=== PATIENT | female | born 1990 | race Caucasian/White ===

== ENCOUNTER 2022-05-10 15:22 | Inpatient (IN) | payer OTHER, MEDICAID ==
[~2022-05-10] VITALS: Ht 157.5 cm; Wt 62.3 kg
[2022-05-10] MEDS ORDERED: CITA10TA99 PO (15:39)
[2022-05-10] MEDS ORDERED: CITA-144 PO (15:40)
[2022-05-10 16:56] LABS: BASOPHILS % (AUTO) 0.7 % (0.0-2.0); EOSINOPHILS % (AUTO) 0.3 % (1.0-6.0); HEMATOCRIT 43.3 % (36-46); HEMOGLOBIN 14.7 g/dL (12.0-16.0); LYMPHOCYTES # (AUTO) 1.6 K/uL (1.0-4.8); LYMPHOCYTES % (AUTO) 18.5 % (22.0-44.0); MEAN CORPUSCULAR HEMOGLOBIN 31.1 pg (26.0-34.0); MEAN CORPUSCULAR VOLUME 91 fL (80-100); MONOCYTES # (AUTO) 0.5 K/uL (0.1-1.0); MONOCYTES % (AUTO) 6.3 % (2.0-9.0); NEUTROPHILS # (AUTO) 6.4 K/uL (1.8-7.7); NEUTROPHILS % (AUTO) 74.2 % (40.0-70.0); PLATELET COUNT (AUTO) 335 K/uL (150-450); RED BLOOD CELL COUNT(AUTO) 4.74 MIL/uL (4.00-5.20); RED CELL DISTRIBUTION WIDTH 13.4 % (11.5-14.5)
[2022-05-10] MEDS ORDERED: LORazepam 1 MG TABLET PO PRN (17:00)
[2022-05-10] MEDS ORDERED: ZOLPIDEM TARTRATE 10 MG TABLET PO PRN ×2 (17:00→20:30)
[2022-05-10] MEDS ORDERED: HALOPERIDOL 5 MG TABLET PO PRN ×2 (17:00→20:30)
[2022-05-10 17:13] LABS: ANION GAP 13 mmol/L (8-16); CALCIUM, TOTAL 9.4 mg/dL (8.8-10.5); CARBON DIOXIDE 24 mmol/L (22-29); CHLORIDE 101 mmol/L (98-107); CREATININE 0.76 mg/dL (0.60-1.30); GLUCOSE,RANDOM 68 mg/dL (70-110); POTASSIUM 3.9 mmol/L (3.5-5.1); SODIUM SERUM 138 mmol/L (136-145); UREA NITROGEN, BLOOD 12 mg/dL (7-18)
[2022-05-10 17:14] LABS: GLOMERULAR FILTR. RATE CALC > 60 mL/min (>60)
[2022-05-10 17:19] LABS: ALANINE AMINOTRANSFERASE 18 U/L (12-78); ALBUMIN 4.4 g/dL (3.4-5.0); ALKALINE PHOSPHATASE 85 U/L (46-116); ASPARTATE AMINOTRANSFERASE 15 U/L (15-37); BILIRUBIN,TOTAL 0.9 mg/dL (0.1-1.0); TOTAL PROTEIN, SERUM 8.5 g/dL (6.4-8.2)
[2022-05-10 18:40] LABS: AMPHET/METH SCREEN,URINE NEGATIVE (NEGATIVE); BARBITURATE SCREEN, URINE NEGATIVE (NEGATIVE); BENZODIAZEPINES SCREEN,URINE NEGATIVE (NEGATIVE); CANNABINOID SCREEN,URINE NEGATIVE (NEGATIVE); COCAINE SCREEN,URINE NEGATIVE (NEGATIVE); METHADONE SCREEN, URINE NEGATIVE (NEGATIVE); OPIATE SCREEN,URINE NEGATIVE (NEGATIVE)
[2022-05-10 18:43] LABS: PHENCYCLIDINE SCREEN,URINE NEGATIVE (NEGATIVE)
[2022-05-10 20:25] LABS: COVID AG,FIA SOURCE NASAL SWAB
[2022-05-10] MEDS ORDERED: LORazepam 2 MG TABLET PO PRN (20:30)
[2022-05-10 23:06] LABS: APPEARANCE,URINE TURBID (CLEAR); GLUCOSE, URINE (UA) NEGATIVE (NEGATIVE); KETONES,URINE 80-100 mg/dL (NEGATIVE); LEUKOCYTE ESTERASE ,URINE LARGE (NEGATIVE); NITRATE,URINE NEGATIVE (NEGATIVE); OCCULT BLOOD,URINE SMALL (NEGATIVE); PROTEIN,URINE 30-70 mg/dL (NEGATIVE); SPECIFIC GRAVITIY, URINE 1.029 (1.003-1.030)
[2022-05-10 23:09] LABS: BILIRUBIN,URINE SMALL (NEGATIVE)
[2022-05-10 23:29] LABS: BACTERIA,URINE Moderate /HPF (None Seen)
[2022-05-11 03:52] VITALS: BP 124/80
[2022-05-11 06:41] LABS: BAND NEUTROPHILS % (MANUAL) 0 % (0-5)
[2022-05-11 07:03] LABS: HEMATOCRIT 41.7 % (36-46); HEMOGLOBIN 14.3 g/dL (12.0-16.0); MEAN CORPUSCULAR HEMOGLOBIN 31.2 pg (26.0-34.0); MEAN CORPUSCULAR HGB CONC 34.3 G/dL (31.0-37.0); MEAN CORPUSCULAR VOLUME 91 fL (80-100); PLATELET COUNT (AUTO) 319 K/uL (150-450); RED BLOOD CELL COUNT(AUTO) 4.59 MIL/uL (4.00-5.20); RED CELL DISTRIBUTION WIDTH 13.5 % (11.5-14.5)
[2022-05-11 07:09] LABS: HEMOGLOBIN A1C 4.8 % (3.8-5.6)
[2022-05-11 07:27] LABS: ALANINE AMINOTRANSFERASE 17 U/L (12-78); ALKALINE PHOSPHATASE 80 U/L (46-116); ANION GAP 10 mmol/L (8-16); ASPARTATE AMINOTRANSFERASE 14 U/L (15-37); BILIRUBIN,TOTAL 0.8 mg/dL (0.1-1.0); CALCIUM, TOTAL 9.3 mg/dL (8.8-10.5); CARBON DIOXIDE 27 mmol/L (22-29); CHLORIDE 104 mmol/L (98-107); CHOL/HDL RATIO 3.7 (3.9-5.7); CHOLESTEROL 222 mg/dL (131-200); CREATININE 0.76 mg/dL (0.60-1.30); FREE T4 (FREE THYROXINE) 1.21 ng/dL (0.76-1.46); GLUCOSE,RANDOM 83 mg/dL (70-110); HDL CHOLESTEROL 60 mg/dL (40-60); LDL CHOL (CALC.) 138 mg/dL (0-130); POTASSIUM 4.1 mmol/L (3.5-5.1); SODIUM SERUM 141 mmol/L (136-145); THYROID STIMULATING HORMONE 1.92 uIU/mL (0.36-3.74); TOTAL PROTEIN, SERUM 7.9 g/dL (6.4-8.2); TRIGLYCERIDES 118 mg/dL (15-150); UREA NITROGEN, BLOOD 14 mg/dL (7-18)
[2022-05-11 07:28] LABS: GLOMERULAR FILTR. RATE CALC > 60 mL/min (>60)
[2022-05-11 08:11] VITALS: BP 131/83
[2022-05-11 08:26] LABS: BASOPHILS % (MANUAL) 1 % (0-2); EOSINOPHILS % (MANUAL) 3 % (1-6); LYMPHOCYTES % (MANUAL) 30 % (22-44); MONOCYTES % (MANUAL) 14 % (2-9); SEGMENTED NEUTROPHILS % 52 % (40-70)
[2022-05-11] MEDS ORDERED: DOCUSATE SODIUM 100 MG CAPSULE PO PRN (10:00)
[2022-05-11] MEDS ORDERED: NICOTINE 14 MG/24 HOUR PATCH TD PRN (10:00)
[2022-05-11] MEDS ORDERED: GuaiFENesin/D-METHORPHAN [SUGAR-FREE] 200-20MG/10 ML SYRUP UDCUP PO PRN (10:00)
[2022-05-11] MEDS ORDERED: ALBUTEROL SULFATE HFA 90 MCG/PUFF 8 GM INHALER IH PRN (10:00)
[2022-05-11] MEDS ORDERED: CloNIDine HCL 0.1 MG TABLET PO PRN (10:00)
[2022-05-11] MEDS ORDERED: MAG HYDROX/AL HYDROX/SIMETH ES 30 ML SUSPENSION UDCUP PO PRN (10:00)
[2022-05-11] MEDS ORDERED: PETROLATUM,WHITE 28 GM JELLY TP PRN (10:00)
[2022-05-11] MEDS ORDERED: ONDANSETRON HCL 4 MG TABLET PO PRN (10:00)
[2022-05-11] MEDS ORDERED: ACETAMINOPHEN 325 MG TABLET PO PRN (10:00)
[2022-05-11] MEDS ORDERED: LOPERAMIDE HCL 2 MG CAPSULE PO PRN (10:00)
[2022-05-11] MEDS ORDERED: MAGNESIUM HYDROXIDE SUSPENSION 30 ML UDCUP PO PRN (10:00)
[2022-05-11] MEDS ORDERED: IBUPROFEN 400 MG TABLET PO PRN (10:00)
[2022-05-11] MEDS ORDERED: CITALOPRAM HYDROBROMIDE 20 MG TABLET PO SCH (11:45)
== END 2022-05-11 17:02 | disposition home or self-care (01) | DRG 885 ==
LOC: EMS 15:32 → B2S 21:33
PROVIDERS: ADMIT Psychiatry & Neurology Psychiatry; ATTEND Psychiatry & Neurology Psychiatry
DX: F32.2 Major depressive disorder, single episode, severe without psychotic features (principal); R45.851 Suicidal ideations; F32.A Depression, unspecified; Z20.822 Contact with and (suspected) exposure to COVID-19
CPT/HCPCS: 80053; 80061; 81001; 83036; 84439; 84443; 84703; 85007; 85025; 85027; 87086; 99285; G0480